=== PATIENT | female | born 1960 | race Caucasian/White ===

== ENCOUNTER 2017-06-05 08:08 | Day surgery (SDC) | payer BC, MEDICARE ==
[~2017-06-05 08:08] MED LIST: Lactated Ringers 1,000 ML IV SCH; Lidocaine 1%/Sod Bicarbonate in NS 8.4% 1 ML Syringe IDERM PRN; Sodium Chloride 0.9% 10 ML Syringe FLUSH PRN
--- NOTE | 2017-06-05 08:44 | PCM.PREANE ---
Preanesthetic Assessment - Anesthesia/Transfusion/Family Hx Anesthesia History: Prior Anesthesia Without Reaction Family History of Anesthesia Reaction: No Transfusion History: No Prior Transfusion(s) - Review of Systems General: No Symptoms, Other (obese) Pulmonary: Shortness of Breath, Other (smoker - day) Cardiovascular: Other (htn, ECHO 04/2017 normal LV size with EF of 60-65%, EKG SR with probable left atrial enlargement) Gastrointestinal: Other (history of rectal ca, ) Neurological: No Symptoms Other: Reports: Thyroid Problems (thyroid nodule bx with elevated TSH, bx okay will continue to monitor) - Physical Assessment NPO Status Date: 06/04/17 NPO Status Time: 21:00 Pulse: 88 O2 Sat by Pulse Oximetry: 93 Respiratory Rate: 16 Blood Pressure: 113/69 Temperature: 37.3 C Weight: 107.048 kg ASA Class: 3 Mental Status: Alert & Oriented x3 Airway Class: Mallampati = 3 Dentition: Reports: Edentulous (upper) Thyro-Mental Finger Breadths: 2 Mouth Opening Finger Breadths: 2 ROM/Head Extension: Limited/Partial Lungs: Clear to Auscultation, Normal Respiratory Effort Cardiovascular: Regular Rate, Regular Rhythm - Allergies Allergies/Adverse Reactions: Allergies Allergy/AdvReac Type Severity Reaction Status Date / Time adhesive Allergy Rash Verified 06/02/17 13:58 - Blood Blood Available: No Product(s) Available: None - Anesthesia Plan Pre-Op Medication Ordered: None - Acknowledgements Anesthesia Type Planned: MAC Pt an Appropriate Candidate for the Planned Anesthesia: Yes Alternatives and Risks of Anesthesia Discussed w Pt/Guardian: Yes Pt/Guardian Understands and Agrees with Anesthesia Plan: Yes PreAnesthesia Questionnaire HEENT History: Reports: None Cardiovascular History: Reports: Heart Murmur, Hypertension Respiratory History: Reports: None Gastrointestinal History: Reports: Other (See Below) Other Gastrointestinal History: resection with J-pouch, hematochezia Genitourinary History: Reports: None Musculoskeletal History: Reports: Other (See Below) Other Musculoskeletal History: bilateral leg pain Neurological History: Reports: None Psychiatric History: Reports: None Endocrine/Metabolic History: Reports: Hypothyroidism, Obesity/BMI 30+ Hematologic History: Reports: Anemia, Iron Deficiency, Polycythemia Immunologic History: Reports: None Oncologic (Cancer) History: Reports: Other (See Below) Other Oncologic History: colorectal cancer Dermatologic History: Reports: None - Past Surgical History Head Surgeries/Procedures: Reports: None HEENT Surgical History: Reports: None Cardiovascular Surgical History: Reports: None Respiratory Surgical History: Reports: None GI Surgical History: Reports: Appendectomy, Colonoscopy, Colostomy, Other (See Below) Other GI Surgeries/Procedures: colostomy with takedown Female Surgical History: Reports: Tubal Ligation Male Surgical History: Reports: None Endocrine Surgical History: Reports: None Neurological Surgical History: Reports: None Musculoskeletal Surgical History: Reports: None Oncologic Surgical History: Reports: None Dermatological Surgical History: Reports: None - SUBSTANCE USE Smoking Status *Q: Current Every Day Smoker Recreational Drug Use History: No - HOME MEDS Home Medications: Home Meds Albuterol [Proventil HFA] 2 puff INH Q4H PRN 06/02/17 [History] Furosemide [Lasix] 40 mg PO DAILY 06/02/17 [History] Levothyroxine [Synthroid] 50 mcg PO DAILY 06/02/17 [History] Potassium Chloride 20 meq PO BID 06/02/17 [History] amLODIPine Besylate [Amlodipine Besylate] 10 mg PO DAILY 06/02/17 [History] - CURRENT (IN HOUSE) MEDS Current Meds: Current Medications Lactated Ringer's (Ringers, Lactated) 1,000 mls @ 125 mls/hr IV ASDIRECTED JAMILA Stop: 06/05/17 23:00 Lidocaine/Sodium Bicarbonate (Buffered Lidocaine 1% In Ns 8.4%) 0.25 ml IDERM ONETIME PRN PRN Reason: Prior to IV Start Stop: 06/05/17 18:00 Sodium Chloride (Saline Flush) 10 ml FLUSH ASDIRECTED PRN PRN Reason: Keep Vein Open Stop: 06/05/17 18:00
[2017-06-05] MEDS ORDERED: Albuterol 0.083% 2.5 MG/3 ML Neb Soln NEB ONE (08:48)
[2017-06-05] MEDS ORDERED: Midazolam 1 MG/ML 2 ML SDV ONE (09:14)
[2017-06-05] MEDS ORDERED: fentaNYL 100 MCG/2 ML SDV ONE (09:18)
[2017-06-05] MEDS ORDERED: Propofol 200 MG/20 ML SDV ONE ×2 (09:19→09:26)
--- NOTE | 2017-06-05 10:10 | PCM.OPNOTE ---
- General Post-Op/Procedure Note Date of Surgery/Procedure: 06/05/17 Operative Procedure(s): egd/colonoscopy to cecum Findings: normal study Pre Op Diagnosis: anemia iron deficiency Post-Op Diagnosis: Same Anesthesia Technique: MAC Primary Surgeon: Hernando Rutledge EBL in mLs: 0 Complications: None Condition: Good
--- NOTE | 2017-06-05 10:14 | PCM48HPAN ---
Post Anesthesia Note - EVALUATION WITHIN 48HRS OF ANESTHETIC Vital Signs in Normal Range: Yes Patient Participated in Evaluation: Yes Respiratory Function Stable: Yes Airway Patent: Yes Cardiovascular Function Stable: Yes Hydration Status Stable: Yes Pain Control Satisfactory: Yes Nausea and Vomiting Control Satisfactory: Yes Mental Status Recovered: Yes Pulse Rate: 89 SaO2: 93 Resp Rate: 16 Temperature: 36.8 C Blood Pressure: 123/82
--- NOTE | 2017-06-06 06:50 | OR ---
DATE OF OPERATION: 06/05/2017 SURGEON: Hernando Rutledge MD PREOPERATIVE DIAGNOSIS: Iron deficiency anemia. POSTOPERATIVE DIAGNOSIS: Iron deficiency anemia. OPERATION PERFORMED: Colonoscopy to cecum. FINDINGS: Anastomosis at 10 cm which was intact. Remaining rectal vault functioning well. The portion of the cecum, ascending colon, transverse colon, and portion of the descending colon appeared normal. ANESTHESIA: Procedure done under IV sedation. DESCRIPTION OF PROCEDURE: The patient having been taken to the endoscopy room and underwent upper GI endoscopy after being connected to the monitoring equipment, given IV sedation. The IV sedation was continued. The patient placed in left lateral position. Perianal area was inspected and was normal. Rectal exam showed good sphincter tone. A video Olympus colonoscope was then introduced into the rectum and threaded up without problem to the cecum, where the appendicular orifice was noted along with the ileocecal valve. Prep was excellent throughout the colon. [place] cleansing score grade A and the scope was slowly withdrawn showing the cecum, ascending colon, transverse colon, descending colon, and rectum and anastomosis at 10 cm. The patient tolerated the procedure, sent to recovery room in a stable condition, and will be followed up as needed in the clinic. ESTIMATED BLOOD LOSS: MMODAL /[id number]
--- NOTE | 2017-06-06 07:02 | OR ---
DATE OF OPERATION: 06/05/2017 SURGEON: Hernando Rutledge MD PREOPERATIVE DIAGNOSIS: Iron deficiency anemia. POSTOPERATIVE DIAGNOSIS: Iron deficiency anemia. FINDINGS: Normal study. The 2nd portion of the duodenum, duodenal bulb, pyloric channel, antrum, body, cardia, stomach, fundus were unremarkable. J-maneuver showed a normal hiatus. GE junction located at 42 cm, was free of any acute disease. Rest of the esophagus was normal as the scope was withdrawn. OPERATION PERFORMED: EGD done under IV sedation. DESCRIPTION OF PROCEDURE: The patient was taken to the endoscopy room, placed in a supine position, connected to monitoring equipment, given IV sedation, and placed in left lateral position. A bite block was inserted and video Olympus gastroscope placed in the posterior oropharynx, under direct vision, threaded past the cricopharyngeus down the esophagus into the stomach. Stomach was insufflated, and the scope passed through the pylorus to the 2nd portion of the duodenum, slowly withdrawn showing the normal 2nd portion of the duodenum, duodenal bulb, pyloric channel, antrum, body, and cardia of the stomach was viewed along with the fundus. J- maneuver was performed showing an intact hiatus. Scope was withdrawn. The GE junction was normal and scope was withdrawn. The esophagus was viewed was also normal. The patient tolerated the procedure. IV sedation will be continued for colonoscopy. ANESTHESIA: ESTIMATED BLOOD LOSS: MMODAL /[id number]
== END 2017-06-05 10:40 | disposition home or self-care (01) ==
LOC: JD.SDS 08:08
PROVIDERS: ATTEND Surgery
DX: D50.9 Iron deficiency anemia, unspecified (principal); E66.9 Obesity, unspecified; F17.210 Nicotine dependence, cigarettes, uncomplicated; I10 Essential (primary) hypertension; D75.1 Secondary polycythemia; Z85.048 Personal history of other malignant neoplasm of rectum, rectosigmoid junction, and anus; Z85.038 Personal history of other malignant neoplasm of large intestine; Z92.21 Personal history of antineoplastic chemotherapy; Z90.49 Acquired absence of other specified parts of digestive tract; Z98.890 Other specified postprocedural states; Z98.51 Tubal ligation status; Z79.899 Other long term (current) drug therapy; Z91.09 Other allergy status, other than to drugs and biological substances; Z80.0 Family history of malignant neoplasm of digestive organs; Z68.30 Body mass index [BMI] 30.0-30.9, adult
CPT/HCPCS: 43235; 45378; 94640; J2250; J3010; J7120; 00813; J2704

== ENCOUNTER 2017-08-18 14:12 | Emergency (ER) | payer MEDICARE ==
--- NOTE | 2017-08-18 16:02 | EDM.PDOC ---
ED HPI GENERAL MEDICAL PROBLEM - General Chief Complaint: General Stated Complaint: SWELLING OF BODY FROM WAIST DOWN TO FEET Time Seen by Provider: 08/18/17 14:40 Source of Information: Reports: Patient History Limitations: Reports: No Limitations - History of Present Illness INITIAL COMMENTS - FREE TEXT/NARRATIVE: Juhi is a 57yo female who presents to ED ambulatory today accompanied by her and daughter with complaints of trunkal and lower extremity swelling , progressive x 1-2 weeks, much worse over the past 48 hours. Patient states she had similar problem 3-4 months ago, went into see her PCP, CHRISTIAN Mazariegos at [facility] and she was found to have new onset hypothryoidism. States she was checked out by Cardiology to assure it wasn't her heart and "that was fine". She was treated for her thyroid disease and symptoms improved. The past 2 weeks she has noted worsening/return of fluid retention to her abdomen and legs. She feels "so full" "just full of water". She is not voiding any more than usual, continues to drink "lots of water". Appetite may be a little decreased. Energy is very low but this is usual for her. She smokes 1.5 to 2 PPD and is not interested in quitting. She does have a smokers cough but nothing worse than usual. No n/v/d, no f/c/s or night sweats. States she did call her PCP who instructed her to come to the ED for further evaluation. PMH: she did have rectal cancer 5 years ago, sees Dr. Dutta every 6 months. Colonoscopy and EGD in May of this year with Dr. Rutledge that was normal. Onset: Gradual Location: Reports: Abdomen, Lower Extremity, Left, Lower Extremity, Right Quality: Reports: Pressure Associated Symptoms: Reports: Malaise (chronic), Weakness (chronic). Denies: Confusion, Chest Pain, cough w sputum, Diaphoresis, Fever/Chills, Headaches, Loss of Appetite, Nausea/Vomiting, Shortness of Breath, Syncope - Related Data Allergies Allergy/AdvReac Type Severity Reaction Status Date / Time adhesive Allergy Rash Verified 08/18/17 14:25 Home Meds: Home Meds Albuterol [Proventil HFA] 2 puff INH Q4H PRN 06/02/17 [History] Furosemide [Lasix] 40 mg PO BID 06/02/17 [History] Levothyroxine [Synthroid] 113 mcg PO DAILY 06/02/17 [History] Potassium Chloride 20 meq PO BID 06/02/17 [History] amLODIPine Besylate [Amlodipine Besylate] 10 mg PO DAILY 06/02/17 [History] Past Medical History HEENT History: Reports: None Cardiovascular History: Reports: Heart Murmur, Hypertension Respiratory History: Reports: None Gastrointestinal History: Reports: Other (See Below) Other Gastrointestinal History: resection with J-pouch, hematochezia Genitourinary History: Reports: None Musculoskeletal History: Reports: Other (See Below) Other Musculoskeletal History: bilateral leg pain Neurological History: Reports: None Psychiatric History: Reports: None Endocrine/Metabolic History: Reports: Hypothyroidism, Obesity/BMI 30+ Hematologic History: Reports: Anemia, Iron Deficiency, Polycythemia Immunologic History: Reports: None Oncologic (Cancer) History: Reports: Other (See Below) Other Oncologic History: colorectal cancer Dermatologic History: Reports: None - Past Surgical History Head Surgeries/Procedures: Reports: None HEENT Surgical History: Reports: None Cardiovascular Surgical History: Reports: None Respiratory Surgical History: Reports: None GI Surgical History: Reports: Appendectomy, Colonoscopy, Colostomy, Other (See Below) Other GI Surgeries/Procedures: colostomy with takedown Female Surgical History: Reports: Tubal Ligation Endocrine Surgical History: Reports: None Neurological Surgical History: Reports: None Musculoskeletal Surgical History: Reports: None Oncologic Surgical History: Reports: None Dermatological Surgical History: Reports: None Social & Family History - Family History Family Medical History: Noncontributory - Tobacco Use Smoking Status *Q: Current Every Day Smoker Years of Tobacco use: 39 Packs/Tins Daily: 1 Used Tobacco, but Quit: No Second Hand Smoke Exposure: No - Caffeine Use Caffeine Use: Reports: Coffee - Recreational Drug Use Recreational Drug Use: No Drug Use in Last 12 Months: No ED ROS GENERAL - Review of Systems Review Of Systems: See Below Constitutional: Reports: Malaise (generalized and chronic), Weakness ( generalized, worse to rt leg due to chronic neuropathy s/p surgery years ago), Fatigue (chronic). Denies: Fever, Chills, Night Sweats, Diaphoresis, Decreased Appetite, Weight Loss HEENT: Reports: No Symptoms Respiratory: Reports: No Symptoms, Cough (chronic "smokers cough") Cardiovascular: Reports: Edema. Denies: Chest Pain, Dyspnea on Exertion, Lightheadedness, Palpitations Endocrine: Reports: Other (hx of new onset thyroid disease 3 or 4 months ago by patient report) GI/Abdominal: Reports: Abdominal Pain (sensation of fullness, no distinct pain) , Distension. Denies: Black Stool, Bloody Stool, Constipation, Diarrhea, Decreased Appetite, Difficulty Swallowing, Hematemesis, Hematochezia, Melena, Nausea, Vomiting : Reports: Other (nocturia- every 2 hours at night- she states is chronic) Musculoskeletal: Reports: Leg Pain (right leg- due to chronic peripheral neuropathy s/p surgery) Neurological: Reports: Numbness (rt leg), Paresthesia (rt leg), Tingling (rt leg ), Weakness (rt leg). Denies: Confusion, Dizziness, Headache Psychiatric: Reports: No Symptoms ED EXAM, GENERAL - Physical Exam Exam: See Below Exam Limited By: No Limitations General Appearance: Alert, WD/WN, No Apparent Distress, Other (pleasant and talkative) Eye Exam: Bilateral Eye: EOMI, PERRL Ears: Normal External Exam, Hearing Grossly Normal Nose: Normal Inspection Throat/Mouth: Normal Inspection, Normal Voice, No Airway Compromise. No: Normal Teeth (poor dentition, missing teeth) Head: Atraumatic, Normocephalic Neck: Normal Inspection, Supple, Other (short/thick) Respiratory/Chest: No Respiratory Distress, Decreased Breath Sounds (mid to lower lobes) Cardiovascular: Normal Peripheral Pulses, Regular Rate, Rhythm, Other (edema is 2-3+ to LE bilat all the way up into her thighs). No: No Edema Peripheral Pulses: 1+: Dorsalis Pedis (L), Dorsalis Pedis (R) GI/Abdominal: Normal Bowel Sounds, Distended, Other (large round abdomen, feeling of fluid present, unable to detect jugular venous distention on exam as neck is short and thick). No: Rigid, Rebound (Female) Exam: Deferred Rectal (Female) Exam: Deferred Extremities: Pedal Edema (2-3+ bilat) Neurological: Alert, Oriented, Normal Cognition Psychiatric: Normal Affect, Normal Mood Skin Exam: Warm, Dry Course - Vital Signs Last Recorded V/S: Last Vital Signs Temp 98 F 08/18/17 14:21 Pulse 92 08/18/17 14:21 Resp 18 08/18/17 14:21 BP 109/64 08/18/17 14:21 Pulse Ox 92 L 08/18/17 14:21 - Orders/Labs/Meds Orders: Active Orders 24 hr Category Date Time Status UA W/MICROSCOPIC [URIN] Stat Lab 08/18/17 15:07 Ordered Sodium Chloride 0.9% [Saline Flush] Med 08/18/17 17:09 Active 10 ml FLUSH ONETIME PRN Medication Orders Sodium Chloride (Saline Flush) 10 ml FLUSH ONETIME PRN PRN Reason: IV FLUSH Last Admin: 08/18/17 17:37 Dose: 10 ml Labs: Laboratory Tests 08/18/17 08/18/17 08/18/17 Range/Units 15:07 15:15 15:15 WBC 9.38 (3.98-10.04) K/mm3 RBC 6.23 H (3.98-5.22) M/mm3 Hgb 11.7 (11.2-15.7) gm/L Hct 45.6 H (34.1-44.9) % MCV 73.2 L (79.4-94.8) fl MCH 18.8 L (25.6-32.2) pg MCHC 25.7 L (32.2-35.5) g/dl RDW Std Deviation 58.8 H (36.4-46.3) fL Plt Count 381 H (182-369) K/mm3 MPV 9.4 (9.4-12.3) fl Neut % (Auto) 68.0 (34.0-71.1) % Lymph % (Auto) 19.0 L (19.3-51.7) % [place] % (Auto) 10.6 (4.7-12.5) % Eos % (Auto) 1.3 (0.7-5.8) Baso % (Auto) 0.9 (0.1-1.2) % Neut # (Auto) 6.39 H (1.56-6.13) K/mm3 Lymph # (Auto) 1.78 (1.18-3.74) K/mm3 [place] # (Auto) 0.99 H (0.24-0.36) K/mm3 Eos # (Auto) 0.12 (0.04-0.36) K/mm3 Baso # (Auto) 0.08 (0.01-0.08) K/mm3 Manual Slide Review Abnormal smear Sodium 135 L (136-145) mEq/L Potassium 3.6 (3.5-5.1) mEq/L Chloride 96 L (98-107) mEq/L Carbon Dioxide 35 H (21-32) mEq/L Anion Gap 7.6 (5-15) BUN 8 (7-18) mg/dL Creatinine 0.8 (0.55-1.02) mg/dL Est Cr Clr Drug Dosing 75.45 mL/min Estimated GFR (MDRD) > 60 (>60) mL/min BUN/Creatinine Ratio 10.0 L (14-18) Glucose 97 (74-106) mg/dL Calcium 8.7 (8.5-10.1) mg/dL Magnesium 1.9 (1.8-2.4) mg/dl Total Bilirubin 1.3 H (0.2-1.0) mg/dL GGT (5-55) U/L AST 13 L (15-37) U/L ALT 11 L (14-59) U/L Alkaline Phosphatase 77 (46-116) U/L NT-Pro-B Natriuret Pep (0-125) pg/mL Total Protein 7.3 (6.4-8.2) g/dl Albumin 3.2 L (3.4-5.0) g/dl Globulin 4.1 gm/dL Albumin/Globulin Ratio 0.8 L (1-2) TSH 3rd Generation (0.358-3.74) uIU/mL Urine Color Yellow (Yellow) Urine Appearance Clear (Clear) Urine pH 6.5 (5.0-8.0) Ur Specific [place] 1.010 (1.005-1.030) Urine Protein Negative (Negative) Urine Glucose (UA) Negative (Negative) Urine Ketones Negative (Negative) Urine Occult Blood Negative (Negative) Urine Nitrite Negative (Negative) Urine Bilirubin Negative (Negative) Urine Urobilinogen 0.2 (0.2-1.0) Ur Leukocyte Esterase Negative (Negative) Urine RBC Not seen (0-5) /hpf Urine WBC 0-5 (0-5) /hpf Ur Epithelial Cells 0-5 (0-5) /hpf Urine Bacteria Not seen (FEW) /hpf Urine Mucus Not seen (FEW) /hpf 08/18/17 08/18/17 08/18/17 Range/Units 15:15 15:15 15:15 WBC (3.98-10.04) K/mm3 RBC (3.98-5.22) M/mm3 Hgb (11.2-15.7) gm/L Hct (34.1-44.9) % MCV (79.4-94.8) fl MCH (25.6-32.2) pg MCHC (32.2-35.5) g/dl RDW Std Deviation (36.4-46.3) fL Plt Count (182-369) K/mm3 MPV (9.4-12.3) fl Neut % (Auto) (34.0-71.1) % Lymph % (Auto) (19.3-51.7) % [place] % (Auto) (4.7-12.5) % Eos % (Auto) (0.7-5.8) Baso % (Auto) (0.1-1.2) % Neut # (Auto) (1.56-6.13) K/mm3 Lymph # (Auto) (1.18-3.74) K/mm3 [place] # (Auto) (0.24-0.36) K/mm3 Eos # (Auto) (0.04-0.36) K/mm3 Baso # (Auto) (0.01-0.08) K/mm3 Manual Slide Review Sodium (136-145) mEq/L Potassium (3.5-5.1) mEq/L Chloride (98-107) mEq/L Carbon Dioxide (21-32) mEq/L Anion Gap (5-15) BUN (7-18) mg/dL Creatinine (0.55-1.02) mg/dL Est Cr Clr Drug Dosing mL/min Estimated GFR (MDRD) (>60) mL/min BUN/Creatinine Ratio (14-18) Glucose (74-106) mg/dL Calcium (8.5-10.1) mg/dL Magnesium (1.8-2.4) mg/dl Total Bilirubin (0.2-1.0) mg/dL GGT 15 (5-55) U/L AST (15-37) U/L ALT (14-59) U/L Alkaline Phosphatase (46-116) U/L NT-Pro-B Natriuret Pep 2157 H (0-125) pg/mL Total Protein (6.4-8.2) g/dl Albumin (3.4-5.0) g/dl Globulin gm/dL Albumin/Globulin Ratio (1-2) TSH 3rd Generation 27.774 H (0.358-3.74) uIU/mL Urine Color (Yellow) Urine Appearance (Clear) Urine pH (5.0-8.0) Ur Specific [place] (1.005-1.030) Urine Protein (Negative) Urine Glucose (UA) (Negative) Urine Ketones (Negative) Urine Occult Blood (Negative) Urine Nitrite (Negative) Urine Bilirubin (Negative) Urine Urobilinogen (0.2-1.0) Ur Leukocyte Esterase (Negative) Urine RBC (0-5) /hpf Urine WBC (0-5) /hpf Ur Epithelial Cells (0-5) /hpf Urine Bacteria (FEW) /hpf Urine Mucus (FEW) /hpf Meds: Medications Generic Name Dose Route Start Last Admin Trade Name Freq PRN Reason Stop Dose Admin Sodium Chloride 10 ml 08/18/17 17:09 08/18/17 17:37 Saline Flush FLUSH 10 ml ONETIME PRN Administration IV FLUSH Discontinued Medications Generic Name Dose Route Start Last Admin Trade Name Freq PRN Reason Stop Dose Admin Diatrizoate Meglum/Diatrizoate Sod 90 ml 08/18/17 17:09 08/18/17 17:36 Gastrografin 37% PO 08/18/17 17:10 90 ml ONETIME ONE Administration Iopamidol 125 ml 08/18/17 17:09 08/18/17 17:37 Isovue-300 (61%) IVPUSH 08/18/17 17:10 125 ml ONETIME ONE Administration - Radiology Interpretation CT Results Date: 08/18/17 (CT of abdomen and pelvis with contrast- radiology report shows small right sided pleural effusion and small amount of ascites. Mild body wall edema- liver stable from prior CT, kidneys show symmetric contrast enhancement. No other abnormal findings noted. see report for details) - Re-Assessments/Exams Free Text/Narrative Re-Assessment/Exam: 08/18/17 16:30 Labs returned and reviewed. Normal hgb at 11.7 but all other indicies micorcytic - likely iron deficient. Chart review shows she had EGD and colonoscopy wtih Dr. Rutledge in May of this year with normal results for CRISTO. LFT's with bili of 1.3, AST/ALT low. Free Text/Narrative Re-Assessment/Exam: 08/18/17 18:43 Reviewed labs; BNP mild elevated in the 2100 range, TSH is still elevated at 27 , other labs essentially unremarkable for acute findings. Will give 40mg lasix IVP. Start PO spironolactone prior to lasix in am and increase levothyroxine dose with recommendations to follow up with PCP lisa early next week for recheck and recheck of electrolytes. Will recommend daily weights and record for PCP. VSS, labs essentially unremarkable for acute findings. CT scan with mild abnormalities but nothing to signify acute need for admission. Again, as above, recommend follow up with PCP. Departure - Departure Time of Disposition: 18:45 Disposition: Home, Self-Care 01 Condition: Good Clinical Impression: Hypothyroidism Qualifiers: Hypothyroidism type: unspecified Qualified Code(s): E03.9 - Hypothyroidism, unspecified Edema Qualifiers: Edema type: unspecified Qualified Code(s): R60.9 - Edema, unspecified - Discharge Information Instructions: Edema, [id number], Hypothyroidism, Peripheral Edema Referrals: Sangita Flood LICENSING ANALYST [Primary Care Provider] - Forms: ED Department Discharge Additional Instructions: -Your thyroid level or TSH is still significantly elevated at 27. Your levothyroxine dose will be increased to 125mcg daily--follow up with PCP for recheck. -Your hemoglobin for anemia is normal but other indicies or parts of your red blood cells are small signifying likely iron deficiency anemia. Recommend follow up with PCP for further recheck/eval. -Your BNP which is a marker for edema/swelling was elevated-- adding spironolactone (another diuretic) once daily in the morning 30 minutes prior to your morning lasix dose. It is essential to have your labs, specifically potassium, checked with this early next week with your PCP. -Your CT of the abdomen/pelvis shows a small amount of fluid around your liver and generalized in your abdomen. I think this is likely related to your thyroid disease, possibly the anemia but unlikely. The elevated BNP and this fluid noted on the CT scan are interrelated. You have had a normal cardiac or heart workup recently, and also had colonoscopy and upper scope just 3 months ago that was normal. You may need further evaluation for why you have iron deficiency. It is imperative that you follow up with your primary care provider, CHRISTIAN Mazariegos as soon as possible early next week for recheck. I recommend you weigh yourself every morning and record the reading- take readings with you to your follow up visit for Madison's review. Return to ER if needed, if worsening or if any new symptoms develop. - My Orders Last 24 Hours: My Active Orders 08/18/17 15:07 UA W/MICROSCOPIC [URIN] Stat 08/18/17 17:09 Sodium Chloride 0.9% [Saline Flush] 10 ml FLUSH ONETIME PRN - Assessment/Plan Last 24 Hours: My Active Orders 08/18/17 15:07 UA W/MICROSCOPIC [URIN] Stat 08/18/17 17:09 Sodium Chloride 0.9% [Saline Flush] 10 ml FLUSH ONETIME PRN
[2017-08-18] MEDS ORDERED: Sodium Chloride 0.9% 10 ML Syringe FLUSH PRN (17:09)
[2017-08-18] MEDS ORDERED: Diatrizoate Meglumine/Diatrizoate Sodium 37% 120 ML Bottle PO ONE (17:09)
[2017-08-18] MEDS ORDERED: Iopamidol 612 MG/ML 150 ML Bottle IVPUSH ONE (17:09)
--- NOTE | 2017-08-18 18:21 | CT ---
CT abdomen and pelvis Technique: Multiple axial sections were obtained from above the dome of the diaphragm inferiorly through the pubic symphysis. Intravenous and oral contrast was utilized. Delayed images were also obtained through the abdomen and pelvis. Comparison: Previous CT abdomen and pelvis exam of 01/07/13. Findings: Minimal right sided pleural effusion is seen. Minimal right basilar atelectasis is noted. Liver stable from prior CT exam measuring approximately 1.3 cm in size. Adrenal glands show no nodule. Pancreas is within normal limits. Gallbladder contains no calcified gallstones. Small amount of ascites is seen around the liver. Kidneys show symmetric contrast enhancement. Cyst is identified within the left kidney which is increased in size and currently measures 6.5 x 5.3 cm. On prior study this measured 5.7 x 3.6 cm. Kidneys are otherwise unremarkable. No retroperitoneal adenopathy or mesenteric abnormalities are seen. No pelvic mass or adenopathy is seen. Delayed images shows contrast excretion into both ureters as well as contrast being seen within the bladder. Bone window settings shows slight degenerative change within the spine. Small amount of air is seen within the central canal at L3-L4 which is due to vacuum phenomena within the adjacent apophyseal joints. This finding is incidental. Increased density is seen within the subcutaneous fat compatible with body wall edema. Impression: 1. Small right sided pleural effusion and small amount of ascites. Mild body wall edema is also noted. 2. Slightly enlarged cyst within the left kidney which is incidental. 3. Other incidental findings. Nothing acute is otherwise seen on CT study of the abdomen and pelvis. Diagnostic code #3
[2017-08-18] MEDS ORDERED: Furosemide 40 MG/4 ML VIAL IVPUSH ONE (18:43)
== END 2017-08-18 19:00 | disposition home or self-care (01) ==
LOC: JD.ED 14:12
DX: E03.9 Hypothyroidism, unspecified (principal); R60.9 Edema, unspecified; I10 Essential (primary) hypertension; F17.210 Nicotine dependence, cigarettes, uncomplicated; Z79.899 Other long term (current) drug therapy
CPT/HCPCS: 36415; 74177; 80053; 81001; 82977; 83735; 83880; 84443; 85025; 96374; 99284; J1940; J7050; Q9963; Q9967

== ENCOUNTER 2019-05-21 15:21 | Emergency (ER) | payer MEDICARE ==
[2019-05-21] MEDS ORDERED: Sodium Chloride 0.9% 10 ML Syringe FLUSH PRN (15:33)
[2019-05-21] MEDS ORDERED: Diltiazem 50 MG/10 ML SDV IVPUSH ONE (15:34)
[2019-05-21] MEDS ORDERED: Diltiazem 125 MG in Sodium Chloride 0.9% 100 ML IV SCH (15:45)
[2019-05-21] MEDS ORDERED: Sodium Chloride 0.9% 1,000 ML IV SCH (15:45)
--- NOTE | 2019-05-21 16:06 | EDM.PDOC ---
ED HPI GENERAL MEDICAL PROBLEM - General Chief Complaint: Cardiovascular Problem Stated Complaint: HIGH HEART RATE Time Seen by Provider: 05/21/19 15:30 Source of Information: Reports: Patient, Family, Provider History Limitations: Reports: No Limitations - History of Present Illness INITIAL COMMENTS - FREE TEXT/NARRATIVE: The patient presents with new onset atrial fibrillations. She was at Dr Dutta's office at [facility]. They noticed her heart rate was in the 140s and they did an EKG and it showed A-fib at a rapid rate of 142. She did not notice she was in this. She has no fever, chills, cough, chest pain or shortness of breath. The only thing new is that she felt more tired lately. She has no abdominal pain, nausea or vomiting. She has a history of colorectal cancer. Onset: Gradual Duration: Day(s): (Unsure) Improves with: Reports: None Worsens with: Reports: None Associated Symptoms: Reports: No Other Symptoms - Related Data Allergies Allergy/AdvReac Type Severity Reaction Status Date / Time adhesive Allergy Rash Verified 05/21/19 16:39 Home Meds: Home Meds Levothyroxine [Synthroid] 200 mcg PO DAILY 06/02/17 [History] Spironolactone [Aldactone] 25 mg PO DAILY 05/21/19 [History] Past Medical History HEENT History: Reports: None Cardiovascular History: Reports: Heart Murmur, Hypertension Respiratory History: Reports: None Gastrointestinal History: Reports: Other (See Below) Other Gastrointestinal History: resection with J-pouch, hematochezia Genitourinary History: Reports: None R[employer]ST[employer] P[employer]HER History: Reports: Musculoskeletal History: Reports: Other (See Below) Other Musculoskeletal History: bilateral leg pain; neuropathy Neurological History: Reports: None Psychiatric History: Reports: None Endocrine/Metabolic History: Reports: Hypothyroidism, Obesity/BMI 30+ Hematologic History: Reports: Anemia, Iron Deficiency, Polycythemia Immunologic History: Reports: None Oncologic (Cancer) History: Reports: Other (See Below) Other Oncologic History: colorectal cancer Dermatologic History: Reports: None - Past Surgical History Head Surgeries/Procedures: Reports: None Cardiovascular Surgical History: Reports: None Respiratory Surgical History: Reports: None GI Surgical History: Reports: Appendectomy, Colonoscopy, Colostomy, Other (See Below) Other GI Surgeries/Procedures: colostomy with takedown Female Surgical History: Reports: Tubal Ligation Endocrine Surgical History: Reports: None Neurological Surgical History: Reports: None Musculoskeletal Surgical History: Reports: None Oncologic Surgical History: Reports: None Dermatological Surgical History: Reports: None Social & Family History - Family History Family Medical History: Noncontributory - Tobacco Use Smoking Status *Q: Current Every Day Smoker Years of Tobacco use: 40 Packs/Tins Daily: 1.5 - Caffeine Use Caffeine Use: Reports: Coffee, Soda - Recreational Drug Use Recreational Drug Use: No ED ROS GENERAL - Review of Systems Review Of Systems: See Below Constitutional: Reports: No Symptoms HEENT: Reports: No Symptoms Respiratory: Reports: No Symptoms Cardiovascular: Reports: Palpitations. Denies: Chest Pain Endocrine: Reports: No Symptoms GI/Abdominal: Reports: No Symptoms : Reports: No Symptoms Musculoskeletal: Reports: No Symptoms ED EXAM, GENERAL - Physical Exam Exam: See Below Exam Limited By: No Limitations General Appearance: Alert, No Apparent Distress Ears: Normal External Exam Nose: Normal Inspection Head: Atraumatic, Normocephalic Neck: Normal Inspection Respiratory/Chest: No Respiratory Distress, Lungs Clear, Normal Breath Sounds Cardiovascular: No Edema, No Murmur, Tachycardia GI/Abdominal: Soft, Non-Tender, No Organomegaly, No Mass Back Exam: Normal Inspection EKG INTERPRETATION EKG Date: 05/21/19 Time: 15:25 Rhythm: A-Fib Rate (Beats/Min): 144 [place]: Normal QRS: Wide ST-T: Normal QT: Normal Course - Vital Signs Last Recorded V/S: Last Vital Signs Temp 97.1 F 05/21/19 15:28 Pulse 143 H 05/21/19 15:28 Resp 21 H 05/21/19 15:28 BP 134/104 H 05/21/19 15:28 Pulse Ox 96 05/21/19 15:28 - Orders/Labs/Meds Orders: Active Orders 24 hr Category Date Time Status Cardiac Monitoring [RC] . DIRECTED Care 05/21/19 15:33 Active EKG Documentation Completion [RC] STAT Care 05/21/19 15:34 Active Peripheral IV Care [RC] . DIRECTED Care 05/21/19 15:34 Active Chest 1V Frontal [CR] Stat Exams 05/21/19 15:34 Taken Diltiazem 125 mg Med 05/21/19 15:45 Active Sodium Chloride 0.9% [Normal Saline] 100 ml IV TITRATE Sodium Chloride 0.9% [Normal Saline] 1,000 ml Med 05/21/19 15:45 Active IV .BOLUS Sodium Chloride 0.9% [Saline Flush] Med 05/21/19 15:33 Active 10 ml FLUSH ASDIRECTED PRN Peripheral IV Insertion Adult [OM.PC] Stat Oth 05/21/19 15:33 Ordered Medication Orders Diltiazem HCl 125 mg/ Sodium (Chloride) 125 mls @ 10 mls/hr IV TITRATE JAMILA; Protocol Last Titration: 05/21/19 16:17 Dose: 15 mg/hr, 15 mls/hr Admin: 05/21/19 16:00 Dose: 10 mg/hr, 10 mls/hr Sodium Chloride (Normal Saline) 1,000 mls @ 1,000 mls/hr IV .BOLUS JAMILA Last Admin: 05/21/19 15:47 Dose: 1,000 mls/hr Sodium Chloride (Saline Flush) 10 ml FLUSH ASDIRECTED PRN PRN Reason: Keep Vein Open Last Admin: 05/21/19 15:49 Dose: 10 ml Labs: Laboratory Tests 05/21/19 05/21/19 Range/Units 15:30 15:30 WBC 10.75 H (3.98-10.04) K/mm3 RBC 7.07 H (3.98-5.22) M/mm3 Hgb 12.9 (11.2-15.7) gm/dl Hct 47.8 H (34.1-44.9) % MCV 67.6 L D (79.4-94.8) fl MCH 18.2 L (25.6-32.2) pg MCHC 27.0 L (32.2-35.5) g/dl RDW Std Deviation 52.4 H (36.4-46.3) fL Plt Count 500 H D (182-369) K/mm3 MPV 9.9 (9.4-12.3) fl Neut % (Auto) 64.3 (34.0-71.1) % Lymph % (Auto) 20.9 (19.3-51.7) % [place] % (Auto) 13.0 H (4.7-12.5) % Eos % (Auto) 1.0 (0.7-5.8) Baso % (Auto) 0.6 (0.1-1.2) % Neut # (Auto) 6.91 H (1.56-6.13) K/mm3 Lymph # (Auto) 2.25 (1.18-3.74) K/mm3 [place] # (Auto) 1.40 H (0.24-0.36) K/mm3 Eos # (Auto) 0.11 (0.04-0.36) K/mm3 Baso # (Auto) 0.06 (0.01-0.08) K/mm3 Manual Slide Review Abnormal smear Sodium 138 (136-145) mEq/L Potassium 3.9 (3.5-5.1) mEq/L Chloride 99 (98-107) mEq/L Carbon Dioxide 31 (21-32) mEq/L Anion Gap 11.9 (5-15) BUN 9 (7-18) mg/dL Creatinine 0.9 (0.55-1.02) mg/dL Est Cr Clr Drug Dosing 63.01 mL/min Estimated GFR (MDRD) > 60 (>60) mL/min BUN/Creatinine Ratio 10.0 L (14-18) Glucose 97 (74-106) mg/dL Calcium 9.0 (8.5-10.1) mg/dL Total Bilirubin 1.0 (0.2-1.0) mg/dL AST 23 (15-37) U/L ALT 19 (14-59) U/L Alkaline Phosphatase 86 (46-116) U/L Troponin I 0.073 H* (0.00-0.056) ng/mL Total Protein 8.1 (6.4-8.2) g/dl Albumin 3.6 (3.4-5.0) g/dl Globulin 4.5 gm/dL Albumin/Globulin Ratio 0.8 L (1-2) TSH 3rd Generation 2.365 (0.358-3.74) uIU/mL Meds: Medications Generic Name Dose Route Start Last Admin Trade Name Freq PRN Reason Stop Dose Admin Diltiazem HCl 125 mg/ Sodium 125 mls @ 10 mls/hr 05/21/19 15:45 05/21/19 16: 17 Chloride IV 15 mg/hr TITRATE JAMILA 15 mls/hr Titration Protocol 10 MG/HR Sodium Chloride 1,000 mls @ 1,000 mls/hr 05/21/19 15:45 05/21/19 15:47 Normal Saline IV 1,000 mls/hr .BOLUS JAMILA Administration Sodium Chloride 10 ml 05/21/19 15:33 05/21/19 15:49 Saline Flush FLUSH 10 ml ASDIRECTED PRN Administration Keep Vein Open Discontinued Medications Generic Name Dose Route Start Last Admin Trade Name Stephy PRN Reason Stop Dose Admin Diltiazem HCl 10 mg 05/21/19 15:34 05/21/19 15:48 Cardizem IVPUSH 05/21/19 15:35 10 mg ONETIME ONE Administration - Re-Assessments/Exams Free Text/Narrative Re-Assessment/Exam: 05/21/19 16:07 I ordered an IV NS 1L bolus, cardizem bolus of 10mg and a drip at 10mg/hr, EKG, CXR and labs. Her EKG show atrial fibrillation at 144 with no acute changes. Her CXR shows cardiomegaly. 05/21/19 16:34 Her WBC was slightly elevated at 10.75. Platelets are 500. Her CMP looks good. Her troponin is elevated at 0.073. TSH is normal. I called [facility] in [place] and talked with Dr Joy the school physical therapist and he wanted the patient down there. I also talked with Dr Simpson and he agreed to the transfer. I let the patient know and she was okay going down to [place] but she does not want to go by ambulance. I explained that she needs the cardizem drip and they will monitor on the way incase she gets worse. I explained that the risks of refusing with being the worst one. She understands but still will not go. I will give her some cardizem PO before she goes. Departure - Departure Time of Disposition: 16:55 Disposition: DC/Tfer to Acute Hospital 02 Reason for Transfer *Q: Other Condition: Serious Clinical Impression: Atrial fibrillation with RVR, Elevated troponin Referrals: Adina Palencia NP [Primary Care Provider] - Forms: ED Department Discharge Sepsis Event Note - Evaluation Sepsis Screening Result: No Definite Risk - Focused Exam Vital Signs: Vital Signs Temp Pulse Resp BP Pulse Ox 05/21/19 15:28 97.1 F 143 H 21 H 134/104 H 96 Date Exam was Performed: 05/21/19 Time Exam was Performed: 16:46 - My Orders Last 24 Hours: My Active Orders 05/21/19 15:33 Cardiac Monitoring [RC] . DIRECTED Sodium Chloride 0.9% [Saline Flush] 10 ml FLUSH ASDIRECTED PRN Peripheral IV Insertion Adult [OM.PC] Stat 05/21/19 15:34 EKG Documentation Completion [RC] STAT Peripheral IV Care [RC] . DIRECTED Chest 1V Frontal [CR] Stat 05/21/19 15:45 Diltiazem 125 mg Sodium Chloride 0.9% [Normal Saline] 100 ml IV TITRATE Sodium Chloride 0.9% [Normal Saline] 1,000 ml IV .BOLUS - Assessment/Plan Last 24 Hours: My Active Orders 05/21/19 15:33 Cardiac Monitoring [RC] . DIRECTED Sodium Chloride 0.9% [Saline Flush] 10 ml FLUSH ASDIRECTED PRN Peripheral IV Insertion Adult [OM.PC] Stat 05/21/19 15:34 EKG Documentation Completion [RC] STAT Peripheral IV Care [RC] . DIRECTED Chest 1V Frontal [CR] Stat 05/21/19 15:45 Diltiazem 125 mg Sodium Chloride 0.9% [Normal Saline] 100 ml IV TITRATE Sodium Chloride 0.9% [Normal Saline] 1,000 ml IV .BOLUS
[2019-05-21] MEDS ORDERED: Diltiazem IR 60 MG Tab PO ONE (16:50)
[2019-05-21] MEDS ORDERED: Aspirin 81 MG Tab.Chew PO ONE (16:58)
--- NOTE | 2019-05-22 07:43 | CR ---
Chest: Portable view of the chest was obtained. Comparison: Prior chest x-ray of 09/12/12. Heart is enlarged. Upper mediastinum is within normal limits. Lungs are clear with no acute parenchymal change. Pulmonary vessels are mildly congested. Bony structures are grossly intact. Impression: 1. Findings suspicious for mild CHF. Diagnostic code #3 This report was dictated in [place] Standard Time
== END 2019-05-21 17:16 ==
LOC: JD.ED 15:21
DX: I48.91 Unspecified atrial fibrillation (principal); R79.89 Other specified abnormal findings of blood chemistry; E03.9 Hypothyroidism, unspecified; I10 Essential (primary) hypertension; F17.210 Nicotine dependence, cigarettes, uncomplicated; E66.9 Obesity, unspecified; Z68.35 Body mass index [BMI] 35.0-35.9, adult; Z91.048 Other nonmedicinal substance allergy status; Z85.038 Personal history of other malignant neoplasm of large intestine; Z79.890 Hormone replacement therapy
CPT/HCPCS: 36415; 71045; 80053; 84443; 84484; 85025; 93005; 96365; 96376; 99285; A9270; J3490; J7030; J7050; 93010; 99284

== ENCOUNTER 2021-03-10 11:59 | Emergency (ER) | payer MEDICARE ==
[2021-03-10] MEDS ORDERED: Sodium Chloride 0.9% 10 ML Syringe FLUSH PRN (12:19)
[2021-03-10] MEDS ORDERED: Furosemide 40 MG/4 ML VIAL IVPUSH ONE (12:36)
--- NOTE | 2021-03-10 12:39 | EDM.PDOC ---
ED HPI GENERAL MEDICAL PROBLEM - General Chief Complaint: Respiratory Problem Stated Complaint: FLUID IN ABDOMIN TO FEET Time Seen by Provider: 03/10/21 12:10 Source of Information: Reports: Patient, RN Notes Reviewed History Limitations: Reports: No Limitations - History of Present Illness INITIAL COMMENTS - FREE TEXT/NARRATIVE: Patient is a 60-year-old female presenting to the emergency department from [facility]. She was seen by her primary care provider today for progressively worsening shortness of breath over the last few weeks as well as 10 to 15 pound weight gain. She has a history of congestive heart failure. Her Lasix was cut back to 20 mg every other day. In the clinic, she was found to be hypoxic at 82% oxygen. Chest x-ray showed evidence of pulmonary vascular congestion consistent with fluid volume overload. Patient denies any chest pain. States shortness of breath is worse with exertion or lying down. She denies any fever, chills, cough, nausea, vomiting, diarrhea. She does have a history of A. fib and is on Coumadin. - Related Data Allergies Allergy/AdvReac Type Severity Reaction Status Date / Time adhesive Allergy Rash Verified 03/10/21 12:17 Home Meds: Home Meds Levothyroxine [Synthroid] 200 mcg PO DAILY 06/02/17 [History] Amiodarone [Cordarone] 200 mg PO DAILY 03/10/21 [History] Furosemide [Lasix] 10 mg PO DAILY 03/10/21 [History] Furosemide [Lasix] 40 mg PO DAILY #2 tab 03/10/21 [Rx] Warfarin [Coumadin] 5 mg PO DAILY 03/10/21 [History] Past Medical History HEENT History: Reports: None Cardiovascular History: Reports: Heart Murmur, Hypertension Respiratory History: Reports: None Gastrointestinal History: Reports: Other (See Below) Other Gastrointestinal History: resection with J-pouch, hematochezia Genitourinary History: Reports: None 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: Musculoskeletal History: Reports: Other (See Below) Other Musculoskeletal History: bilateral leg pain; neuropathy Neurological History: Reports: None Psychiatric History: Reports: None Endocrine/Metabolic History: Reports: Hypothyroidism, Obesity/BMI 30+ Hematologic History: Reports: Anemia, Iron Deficiency, Polycythemia Immunologic History: Reports: None Oncologic (Cancer) History: Reports: Other (See Below) Other Oncologic History: colorectal cancer Dermatologic History: Reports: None - Past Surgical History Head Surgeries/Procedures: Reports: None Cardiovascular Surgical History: Reports: None Respiratory Surgical History: Reports: None GI Surgical History: Reports: Appendectomy, Colonoscopy, Colostomy, Other (See Below) Other GI Surgeries/Procedures: colostomy with takedown Female Surgical History: Reports: Tubal Ligation Endocrine Surgical History: Reports: None Neurological Surgical History: Reports: None Musculoskeletal Surgical History: Reports: None Oncologic Surgical History: Reports: None Dermatological Surgical History: Reports: None Social & Family History - Family History Family Medical History: No Pertinent Family History - Caffeine Use Caffeine Use: Reports: Coffee, Soda ED ROS GENERAL - Review of Systems Review Of Systems: See Below Constitutional: Reports: No Symptoms. Denies: Fever, Chills HEENT: Reports: No Symptoms Respiratory: Reports: Shortness of Breath, Wheezing. Denies: Pleuritic Chest Pain, Cough Cardiovascular: Reports: Dyspnea on Exertion, Edema, Orthopnea. Denies: Chest Pain, Lightheadedness, Palpitations, Syncope Endocrine: Reports: No Symptoms GI/Abdominal: Reports: No Symptoms : Reports: No Symptoms Musculoskeletal: Reports: No Symptoms Skin: Reports: No Symptoms Neurological: Reports: No Symptoms. Denies: Confusion, Dizziness, Headache Psychiatric: Reports: No Symptoms Hematologic/Lymphatic: Reports: No Symptoms Immunologic: Reports: No Symptoms ED EXAM, GENERAL - Physical Exam Exam: See Below Exam Limited By: No Limitations General Appearance: Alert, WD/WN, No Apparent Distress Respiratory/Chest: No Respiratory Distress, No Accessory Muscle Use, Chest Non- Tender, Rhonchi (Scattered throughout), Wheezing Cardiovascular: Normal Peripheral Pulses, Regular Rate, Rhythm, No Gallop, No JVD, No Murmur, No Rub, Other (2+ pitting edema to bilateral lower extremities.) GI/Abdominal: Normal Bowel Sounds, Soft, Non-Tender, No Organomegaly, No Distention, No Abnormal Bruit, No Mass Neurological: Alert, Oriented, CN II-XII Intact, Normal Cognition, Normal Gait, Normal Reflexes, No Motor/Sensory Deficits Psychiatric: Normal Affect, Normal Mood Skin Exam: Warm, Dry, Intact, Normal Color, No Rash #1 Interpretation EKG Date: 03/10/21 Time: 12:39 Rhythm: NSR Rate (Beats/Min): 77 [place]: Normal P-Wave: Present QRS: Normal ST-T: Normal QT: Normal Course - Vital Signs Last Recorded V/S: Last Vital Signs Temp 98.9 F 03/10/21 12:11 Pulse 80 03/10/21 12:11 Resp 16 03/10/21 12:11 BP 110/62 03/10/21 12:11 Pulse Ox 92 L 03/10/21 12:11 - Orders/Labs/Meds Labs: Laboratory Tests 03/10/21 03/10/21 03/10/21 Range/Units 12:33 12:33 12:33 WBC 6.43 (3.98-10.04) K/mm3 RBC 6.19 H (3.98-5.22) M/mm3 Hgb 10.6 L D (11.2-15.7) gm/dl Hct 42.4 (34.1-44.9) % MCV 68.5 L (79.4-94.8) fl MCH 17.1 L (25.6-32.2) pg MCHC 25.0 L (32.2-35.5) g/dl RDW Std Deviation 54.6 H (36.4-46.3) fL Plt Count 291 D (182-369) K/mm3 MPV 10.2 (9.4-12.3) fl Neut % (Auto) 59.5 (34.0-71.1) % Lymph % (Auto) 23.3 (19.3-51.7) % [place] % (Auto) 14.2 H (4.7-12.5) % Eos % (Auto) 1.9 (0.7-5.8) Baso % (Auto) 0.6 (0.1-1.2) % Neut # (Auto) 3.83 (1.56-6.13) K/mm3 Lymph # (Auto) 1.50 (1.18-3.74) K/mm3 [place] # (Auto) 0.91 H (0.24-0.36) K/mm3 Eos # (Auto) 0.12 (0.04-0.36) K/mm3 Baso # (Auto) 0.04 (0.01-0.08) K/mm3 PT (9.7-12.0) SECONDS INR D-Dimer, Quantitative (0.19-0.50) mg/L Sodium 131 L (136-145) mEq/L Potassium 3.8 (3.5-5.1) mEq/L Chloride 94 L (98-107) mEq/L Carbon Dioxide 33 H (21-32) mEq/L Anion Gap 7.8 (5-15) BUN 11 (7-18) mg/dL Creatinine 0.9 (0.55-1.02) mg/dL Est Cr Clr Drug Dosing 64.64 mL/min Estimated GFR (MDRD) > 60 (>60) mL/min BUN/Creatinine Ratio 12.2 L (14-18) Glucose 94 (70-99) mg/dL Calcium 7.8 L (8.5-10.1) mg/dL Magnesium 1.6 L (1.8-2.4) mg/dL Total Bilirubin 1.1 H (0.2-1.0) mg/dL AST 42 H (15-37) U/L ALT 18 (14-59) U/L Alkaline Phosphatase 66 (46-116) U/L Troponin I 0.025 (0.00-0.056) ng/mL C-Reactive Protein 2.7 H* (<1.0) mg/dL NT-Pro-B Natriuret Pep 4182 H (0-125) pg/mL Total Protein 6.3 L (6.4-8.2) g/dl Albumin 3.0 L (3.4-5.0) g/dl Globulin 3.3 gm/dL Albumin/Globulin Ratio 0.9 L (1-2) SARS-CoV-2 RNA (DILMA) (NEGATIVE) 03/10/21 03/10/21 03/10/21 Range/Units 12:33 12:33 12:35 WBC (3.98-10.04) K/mm3 RBC (3.98-5.22) M/mm3 Hgb (11.2-15.7) gm/dl Hct (34.1-44.9) % MCV (79.4-94.8) fl MCH (25.6-32.2) pg MCHC (32.2-35.5) g/dl RDW Std Deviation (36.4-46.3) fL Plt Count (182-369) K/mm3 MPV (9.4-12.3) fl Neut % (Auto) (34.0-71.1) % Lymph % (Auto) (19.3-51.7) % [place] % (Auto) (4.7-12.5) % Eos % (Auto) (0.7-5.8) Baso % (Auto) (0.1-1.2) % Neut # (Auto) (1.56-6.13) K/mm3 Lymph # (Auto) (1.18-3.74) K/mm3 [place] # (Auto) (0.24-0.36) K/mm3 Eos # (Auto) (0.04-0.36) K/mm3 Baso # (Auto) (0.01-0.08) K/mm3 PT 16.5 H (9.7-12.0) SECONDS INR 1.51 D-Dimer, Quantitative 0.36 (0.19-0.50) mg/L Sodium (136-145) mEq/L Potassium (3.5-5.1) mEq/L Chloride (98-107) mEq/L Carbon Dioxide (21-32) mEq/L Anion Gap (5-15) BUN (7-18) mg/dL Creatinine (0.55-1.02) mg/dL Est Cr Clr Drug Dosing mL/min Estimated GFR (MDRD) (>60) mL/min BUN/Creatinine Ratio (14-18) Glucose (70-99) mg/dL Calcium (8.5-10.1) mg/dL Magnesium (1.8-2.4) mg/dL Total Bilirubin (0.2-1.0) mg/dL AST (15-37) U/L ALT (14-59) U/L Alkaline Phosphatase (46-116) U/L Troponin I (0.00-0.056) ng/mL C-Reactive Protein (<1.0) mg/dL NT-Pro-B Natriuret Pep (0-125) pg/mL Total Protein (6.4-8.2) g/dl Albumin (3.4-5.0) g/dl Globulin gm/dL Albumin/Globulin Ratio (1-2) SARS-CoV-2 RNA (DILMA) Positive H (NEGATIVE) Meds: Medications Discontinued Medications Generic Name Dose Route Start Last Admin Trade Name Freq PRN Reason Stop Dose Admin Furosemide 40 mg 03/10/21 12:36 03/10/21 12:44 Furosemide 40 Mg/4 Ml Vial IVPUSH 03/10/21 12:37 40 mg NOW ONE Administration Sodium Chloride 10 ml 03/10/21 12:19 03/10/21 12:45 Sodium Chloride 0.9% 10 Ml Syringe FLUSH 10 ml ASDIRECTED PRN Administration Keep Vein Open - Re-Assessments/Exams Free Text/Narrative Re-Assessment/Exam: Patient is a 60-year-old female presenting to the emergency department from the [facility] for CHF exacerbation. She reports progressive weight gain over the last few weeks with progressively worsening shortness of breath, signifi cantly worse of the last 2 days. On exam, she has diffuse expiratory wheezing and rhonchi throughout her lung ray. She also has 2+ pitting edema to the bilateral lower extremities. Chest x-ray completed at [facility] impression as follows: 1. Pulmonary venous hypertension primary edema have increased since 11/22/2020. Enlarged cardiac silhouette. No pleural effusion. Findings are compatible with heart failure/volume overload. No pneumothorax. I have ordered blood work, EKG, Covid testing, and Lasix 40 mg IV. 03/10/21 13:50 Hematology significant for hemoglobin low at 10.6, sodium 131, CO2 33, magnesium 1.6, total bili 1.1, CRP 2.7, proBNP 4182. Troponin is normal. EKG shows normal sinus rhythm at 77 with no evidence of acute ischemia. Patient is unfortunately Covid positive. Given her combination of congestive heart failure and Covid, discussed with patient that hospitalization would be the appropriate treatment. She adamantly declines this. She states "if I am going to I want a at home ". Discussed risks with patient including respiratory failure and and she verbalized understanding. Her was in the room at the time of this and states that he knows better than to tell her what to do. Patient will sign out AMA. I will prescribe home oxygen for her and recommend that she increase her Lasix to 40 mg daily for the next 3 days and then follow-up with her primary care provider on Monday. She had for she is not a candidate for monoclonal antibodies as she is hypoxic. Dexamethasone would only further exacerbate her fluid overload. I did speak with her primary care, Gisell Palencia and she will see her in the clinic at 8 AM on Monday. Discussed with patient that she feels she is worsening any way, she should return to ER. She verbalized understanding of this. Departure - Departure Time of Disposition: 13:55 Disposition: Against Medical Advice 07 Condition: Fair Clinical Impression: Hypoxia, COVID CHF exacerbation Qualifiers: Heart failure type: unspecified Qualified Code(s): I50.9 - Heart failure, unspecified - Discharge Information *PRESCRIPTION DRUG MONITORING PROGRAM REVIEWED*: No *COPY OF PRESCRIPTION DRUG MONITORING REPORT IN PATIENT MITRA: No Prescriptions: Furosemide [Lasix] 40 mg PO DAILY #2 tab Instructions: Hypoxia, COVID-19 Referrals: Adina Palencia NP [Primary Care Provider] - Forms: ED Department Discharge Additional Instructions: Titrate oxygen between 1 and 4 L as needed to keep oxygen saturations above 88%. Increase Lasix to 40 mg daily for the next 2 days. You received 40 mg of Lasix in the ER, so your next dose would not be until tomorrow. Follow-up with your primary care provider at 8 AM on Monday morning. Return to ER if you feel symptoms are worsening.
== END 2021-03-10 15:45 | disposition left against medical advice (07) ==
LOC: JD.ED 11:59
DX: U07.1 COVID-19 (principal); I11.0 Hypertensive heart disease with heart failure; I50.9 Heart failure, unspecified; R09.02 Hypoxemia; E03.9 Hypothyroidism, unspecified; E66.9 Obesity, unspecified; Z68.38 Body mass index [BMI] 38.0-38.9, adult; Z91.048 Other nonmedicinal substance allergy status; Z79.899 Other long term (current) drug therapy; Z79.01 Long term (current) use of anticoagulants
CPT/HCPCS: 36415; 80053; 83735; 83880; 84484; 85025; 85379; 85610; 86140; 93005; 96374; 99285; J1940; U0002; 93010; 99284